=== PATIENT | male | born 1965 | race Caucasian/White ===

== ENCOUNTER 2017-12-15 13:33 | Outpatient (CLI) | payer BC ==
[2017-12-15 14:51] LABS: Hemoglobin 14.2 g/dL (14.0-18.0); Mean Corpuscular HGB CONC 34.8 g/dL (32.0-36.0); Mean Corpuscular Hemoglobin 32.2 pg (27.0-31.0); Mean Corpuscular Volume 92.7 fL (78.0-98.0); Platelet Count 136 thou/uL (130-400); RBC Distribution Width 11.3 % (11.5-14.5); White Blood Cell (WBC) Count 5.8 thou/uL (4.8-10.8)
[2017-12-15 15:10] LABS: Anion Gap 12 mmol/L (10-20); BUN (Urea Nitrogen) 11 mg/dL (8.4-25.7); Calc. Creatinine Clearance 0 mL/min (70-130); Calcium 9.5 mg/dL (7.8-10.44); Carbon Dioxide 26 mmol/L (22-29); Chloride 105 mmol/L (98-107); Estimated GFR-MDRD Greater than 90; Glucose 105 mg/dL (70-105); Sodium 139 mmol/L (136-145)
--- NOTE | 2017-12-15 15:12 | EKG ---
Test Reason : Blood Pressure : / mmHG Vent. Rate : 076 BPM Atrial Rate : 076 BPM P-R Int : 164 ms QRS Dur : 094 ms QT Int : 400 ms P-R-T Axes : 049 074 -01 degrees QTc Int : 450 ms Normal sinus rhythm Possible Anterior infarct , age undetermined T wave abnormality, consider inferior ischemia Abnormal ECG Confirmed by YASMINE CUEVA ([id number]) on 12/15/2017 3:11:58 PM Referred By: INO Confirmed By:YASMINE CUEVA
== END 2017-12-15 13:34 | disposition home or self-care (01) ==
LOC: LABBT 13:33
PROVIDERS: ATTEND Neurological Surgery
DX: Z01.818 Encounter for other preprocedural examination (principal); M54.16 Radiculopathy, lumbar region
CPT/HCPCS: 80048; 85027; 93005; 93010

== ENCOUNTER 2018-05-20 07:36 | Outpatient (CLI) | payer BC ==
--- NOTE | 2018-05-20 07:58 | RAD ---
FXR Lumbar Spine 2 Or 3 View History: [Lumbar radiculopathy] Comparison: None. Findings: No acute fracture or malalignment. No significant change listhesis. No translation with fle xion or extension. Moderate degenerative disc space narrowing from L3-S1. Moderate vascular calcifications. Impression: Mild to moderate degenerative changes. No translation with flexion or extension. No signi ficant listhesis.
--- NOTE | 2018-05-20 08:43 | MRI ---
MRI LUMBAR SPINE WITHOUT CONTRAST: Date: 05/20/18 Multiplanar, multisequential imaging lumbar spine obtained. INDICATION: Lumbar radiculopathy. Right leg pain and numbness. No comparison. FINDINGS: Lumbar vertebra maintain normal height and alignment. Vertebral body signal is normal. There are dege nerative disc changes at L5-S1. The other discs are maintained and exhibit normal signal. At L1-2, there is no significant disc bulge. Mild facet hypertrophy and arthrosis. No central canal o r foraminal stenosis. At L2-3, there is minimal disc bulge. Mild facet arthrosis with no significant central canal or estuardo inal stenosis. At L3-4, there is mild diffuse disc bulge. Facet and ligamentous hypertrophy is more prominent. There is posterior epidural fat. These changes result in mild central canal stenosis. Mild foraminal narro wing due to facet hypertrophy. At L4-5, there is mild diffuse disc bulge. There is evidence of a small focal central protrusion and thinning of the anterior thecal sac. The epidural fat is more prominent posteriorly at this level. Mo derate facet hypertrophy. These changes result in mild to moderate central canal stenosis. Bilateral foraminal narrowing due to the disc bulge and facet hypertrophy. At L5-S1, there is diffuse disc bulge with small central protrusion indenting the anterior thecal sac . Facet hypertrophy. The thecal sac is congenitally smaller; however, the findings result in moderate central canal stenosis. Bilateral foraminal stenosis at this level, more pronounced on the right. Th ere is a disc osteophyte complex that projects to the right and there is prominent facet hypertrophy. IMPRESSION: Abnormalities at L3-4, L4-5, and L5-S1 as described above. POS: [facility]
== END 2018-05-20 07:37 | disposition home or self-care (01) ==
LOC: TBSIIMAG 07:36
PROVIDERS: ATTEND Neurological Surgery
DX: M47.26 Other spondylosis with radiculopathy, lumbar region (principal); M51.17 Intervertebral disc disorders with radiculopathy, lumbosacral region; M48.07 Spinal stenosis, lumbosacral region; M25.78 Osteophyte, vertebrae; M47.27 Other spondylosis with radiculopathy, lumbosacral region
CPT/HCPCS: 72100; 72148

== ENCOUNTER 2018-06-18 14:21 | Outpatient (CLI) | payer BC ==
[2018-06-18 15:08] LABS: Hemoglobin 13.5 g/dL (14.0-18.0); Mean Corpuscular HGB CONC 35.2 g/dL (32.0-36.0); Mean Corpuscular Hemoglobin 32.1 pg (27.0-31.0); Mean Corpuscular Volume 91.2 fL (78.0-98.0); Mean Platelet Volume 7.3 fL (7.4-10.4); Platelet Count 138 thou/uL (130-400); RBC Distribution Width 11.6 % (11.5-14.5); Red Blood Cell (RBC) Count 4.19 mill/uL (4.70-6.10); White Blood Cell (WBC) Count 4.7 thou/uL (4.8-10.8)
[2018-06-18 15:34] LABS: Anion Gap 15 mmol/L (10-20); BUN (Urea Nitrogen) 8 mg/dL (8.4-25.7); Calc. Creatinine Clearance 0 mL/min (70-130); Calcium 9.6 mg/dL (7.8-10.44); Carbon Dioxide 22 mmol/L (22-29); Chloride 105 mmol/L (98-107); Estimated GFR-MDRD Greater than 90; Glucose 94 mg/dL (70-105); Sodium 138 mmol/L (136-145)
== END 2018-06-18 14:22 | disposition home or self-care (01) ==
LOC: LABBT 14:21
PROVIDERS: ATTEND Neurological Surgery
DX: Z01.818 Encounter for other preprocedural examination (principal); M54.16 Radiculopathy, lumbar region
CPT/HCPCS: 80048; 85027; 93005; 93010

== ENCOUNTER 2018-06-22 06:41 | Day surgery (SDC) | payer BC ==
[2018-06-22] MEDS ORDERED: Sodium Chloride 0.9% 10 ML ONE (08:49)
[2018-06-22] MEDS ORDERED: Midazolam HCl 2 mg/2 ml Vial ONE (08:57)
[2018-06-22] MEDS ORDERED: Fentanyl 100 MCG/2 ML VIAL ONE ×3 (09:15→11:01)
[2018-06-22] MEDS ORDERED: Ketorolac Tromethamine 30 MG/ML VIAL ONE (11:01)
[2018-06-22] MEDS ORDERED: Promethazine HCl 25 MG/ML VIAL IM/IV PRN (11:09)
[2018-06-22] MEDS ORDERED: Ondansetron HCl/PF 4 MG/2 ML Vial IVP PRN (11:09)
[2018-06-22] MEDS ORDERED: Morphine 4 MG/ML VIAL SLOW IVP PRN (11:12)
[2018-06-22] MEDS ORDERED: diphenhydrAMINE 50 MG/ML VIAL IVP PRN (11:12)
[2018-06-22] MEDS ORDERED: HYDROcodone/Acetaminophen 10/325 mg Tablet PO PRN ×2 (11:12)
[2018-06-22] MEDS ORDERED: Mag-Al 1200 mg/1200 mg/30 ML UDCUP PO PRN (11:12)
[2018-06-22] MEDS ORDERED: diphenhydrAMINE 25 MG CAP PO PRN (11:12)
[2018-06-22] MEDS ORDERED: Promethazine HCl 25 MG/ML VIAL IM PRN (11:12)
[2018-06-22] MEDS ORDERED: Milk Of Magnesia 30 ML UDCUP PO PRN (11:12)
[2018-06-22] MEDS ORDERED: Promethazine HCl 12.5 MG SUPP PR PRN (11:12)
[2018-06-22] MEDS ORDERED: traMADol HCl 50 MG TAB PO PRN ×2 (11:12)
[2018-06-22] MEDS ORDERED: Promethazine 25 MG TAB PO PRN (11:12)
[2018-06-22] MEDS ORDERED: tiZANidine HCl 4 MG TAB PO PRN (11:12)
[2018-06-22] MEDS ORDERED: Sodium Chloride 0.9% 1,000 ML IV SCH (11:12)
[2018-06-22] MEDS ORDERED: Ondansetron PF 4 MG/2 ML Vial IVP PRN (11:14)
[2018-06-22] MEDS ORDERED: Morphine 2 MG/ML SYRINGE SLOW IVP PRN (11:30)
--- NOTE | 2018-06-22 11:47 | OP ---
DATE OF PROCEDURE: 06/22/2018 WINDOW DISPLAY DESIGNER: Loren Castro PA-C PROCEDURE PERFORMED: Right L5-S1 laminectomy, facetectomy, foraminotomy and diskectomy; interbody arthrodesis; intervertebral biomechanical device; local morselized autograft; demineralized bone matrix; posterolateral arthrodesis, pedicle screw instrumentation, right L5-S1. DESCRIPTION OF PROCEDURE: The patient was brought to the operating room and intubated. He was rolled in the prone position on gel-filled chest rolls. An incision was made exposing right L5-S1 and the level was confirmed by x-ray. We performed complete right L5 facetectomy and superior S1 facetectomy and completely decompressed the right L5 neuroforamen. The disk itself was incised, debrided, and completely removed. The bony endplates were decorticated for the purpose of arthrodesis and appropriate-sized intervertebral biomechanical PEEK device was brought in the field. It was filled with demineralized bone matrix, local morselized autograft, and tapped in place securely at L5-S1. Next, pedicle screws were placed at right L5 and right S1 using lateral fluoroscopic guidance. The vianca was secured between the screws, connected by nuts, which were final tightened. The wound was then extensively irrigated. Maximum hemostasis was secured. Combination of demineralized bone matrix local morselized autograft was laid over the left lamina and posterolateral surfaces for the purpose of arthrodesis. Vancomycin powder was applied, and the wound was closed in anatomic layers. Job ID: [id number]
[2018-06-22] MEDS ORDERED: Ketorolac Tromethamine 30 MG/ML VIAL IVP SCH (12:00)
[2018-06-22] MEDS ORDERED: Lidocaine 1% PF 5 ML VIAL ONE (13:15)
[2018-06-22] MEDS ORDERED: Ondansetron PF 4 MG/2 ML Vial ONE (13:15)
[2018-06-22] MEDS ORDERED: Rocuronium Bromide 10 MG/ML (10ML VIAL) ONE (13:15)
[2018-06-22] MEDS ORDERED: PROVENTIL INHALER 6.7 G (200 INHALATIONS) ONE (13:15)
[2018-06-22] MEDS ORDERED: Glycopyrrolate 0.2 MG/ML 5 ML SYRINGE ONE (13:15)
[2018-06-22] MEDS ORDERED: PROPOFOL 200 MG/20 ML VIAL ONE (13:15)
[2018-06-22] MEDS ORDERED: HYDROcodone/Acetaminophen 5/325 mg Tablet ONE (13:46)
== END 2018-06-22 15:48 | disposition home or self-care (01) ==
LOC: SDC 06:41
PROVIDERS: ATTEND Neurological Surgery
PROC: 0ST40ZZ Resection of Lumbosacral Disc, Open Approach (ICD-10-PCS; principal; 2018-06-22)
PROC: 0SG30AJ Fusion of Lumbosacral Joint with Interbody Fusion Device, Posterior Approach, Anterior Column, Open Approach (ICD-10-PCS; principal; 2018-06-22)
DX: M51.16 Intervertebral disc disorders with radiculopathy, lumbar region (principal); I10 Essential (primary) hypertension; E78.5 Hyperlipidemia, unspecified; K21.9 Gastro-esophageal reflux disease without esophagitis; Z79.1 Long term (current) use of non-steroidal anti-inflammatories (NSAID); Z79.84 Long term (current) use of oral hypoglycemic drugs; Z79.899 Other long term (current) drug therapy
CPT/HCPCS: 76000; C1713; C1768; J0690; J1885; J2001; J2250; J2405; J2704; J3010; J3370; J3490

== ENCOUNTER 2018-07-07 08:16 | Outpatient (CLI) | payer BC ==
--- NOTE | 2018-07-07 10:50 | RAD ---
LUMBAR SPINE 2 VIEWS: Date: 07/07/18 HISTORY: Lumbar radiculopathy. COMPARISON: 05/20/18. FINDINGS: Postoperative changes are now noted when compared to the prior study. There are pedicle screws on the right at L5-S1 with L5-S1 disc implant noted, which appears adequately positioned. Posterior alignme nt is maintained normally. There are mild degenerative changes with osteophytes in the lumbar spine a nd there is facet hypertrophy. IMPRESSION: Postoperative and degenerative changes of the lumbar spine. POS: OFF
== END 2018-07-07 08:17 | disposition home or self-care (01) ==
LOC: TBSIIMAG 08:16
PROVIDERS: ATTEND Neurological Surgery
DX: M47.26 Other spondylosis with radiculopathy, lumbar region (principal); Z98.890 Other specified postprocedural states
CPT/HCPCS: 72100

== ENCOUNTER 2018-07-20 07:48 | Outpatient (CLI) | payer BC ==
--- NOTE | 2018-07-20 08:21 | CT ---
CT lumbar spine noncontrast: 07/20/2018 HISTORY: 53-year-old male with lumbar radiculopathy. Right hip pain. Low back pain. FINDINGS: There are 5 lumbar-type vertebrae. Vertebral body heights are maintained. Alignment is normal. No hig h-grade disc space narrowing at any level. Developmentally small caliber spinal canal exacerbated by lumbar spondylosis. No scoliosis. T12-L1: No high-grade central or neural foraminal stenosis. L1-2: No high-grade central or high-grade neural foraminal stenosis. L2-3: Mild bilateral neural foraminal stenosis. Mild central stenosis. Mild to moderate thecal sac st enosis. L3-4: Diffuse disc bulge. Mild central spinal canal stenosis. Moderate thecal sac stenosis. Moderate bilateral neural foraminal stenosis, left greater than right. Left vacuum facet joint phenomenon. Mild ligamentum flavum thickening. L4-5: Diffuse disc bulge plus superimposed shallow small central and bilateral paracentral disc herni ation that indents the thecal sac. Mild central spinal canal stenosis. Moderate thecal sac stenosis. Moderate bilateral neural foraminal stenosis. Left-sided onlay bone graft chips posterior t o the left posterior elements. These have not fused. L5-S1: Surgical resection of right L5 inferior articular facet. Right L5 pedicle screw at the lateral edge of the vertebral body. Right S1 pedicle screw surrounded by lucency of bone that in turn has a sclerotic rim. Metallic markers for interbody graft in the right side of the disc space. No osseous bridges between the endplates. Diffuse disc bulge. The central and left paracentral soft tissue density material indents the thecal sac. Cannot distinguish herniated disc material from postsurgical scar tissue on CT. Left-sided onlay bone graft chips posterior to the left posterior elements. These have not fused. Severe right neural foraminal stenosis with complete effacement of neural estuardo inal fat. Cannot distinguish postsurgical scar tissue from disc material. Moderate to severe left neural foraminal stenosis with effacement of neural foraminal fat. Severe thecal sac stenosis caused by the soft tissue density material described above. Mild central spinal canal stenosis. IMPRESSION: 1. Status post posterior lumbar interbody fusion at L5-S1, with placement of unilateral right-sided p edicle screws, and right L5 inferior facetectomy. 2. Loosening of right S1 pedicle screw. 3. Soft tissue density material effacing the central and left paracentral anterior aspect of the thec al sac at L5-S1: Cannot distinguish herniated extruded disc material from postsurgical scar tissue on CT. 4. Severe bilateral neural foraminal stenosis at L5-S1 with effacement of neural foraminal fat, right worse than left. Cannot distinguish disc material from postsurgical scar tissue on CT. 5. Placement of onlay bone graft chips posterior to the left posterior elements from L4-5 through L5- S1.
== END 2018-07-20 07:49 | disposition home or self-care (01) ==
LOC: TBSIIMAG 07:48
PROVIDERS: ATTEND Neurological Surgery
DX: M51.16 Intervertebral disc disorders with radiculopathy, lumbar region (principal); T84.038A Mechanical loosening of other internal prosthetic joint, initial encounter; M48.07 Spinal stenosis, lumbosacral region; Z98.1 Arthrodesis status
CPT/HCPCS: 72131

== ENCOUNTER 2018-08-12 13:11 | Outpatient (CLI) | payer BC ==
--- NOTE | 2018-08-12 13:38 | RAD ---
EXAM: 2 views of the lumbosacral spine HISTORY: Low back pain COMPARISON: 07/07/2018 FINDINGS: 2 views of the lumbosacral spine shows the patient is status post posterior fusion of L5 an d S1 with right-sided pedicle screws. A disc spacer is seen in the intervening disc space. No perihardware lucency is seen. There is normal height and alignment of the vertebral bodies without fr acture or subluxation. Moderate osteophytes are seen in the upper and mid lumbar spine. No changes occurred compared to the prior exam. The sacroiliac joints are unremarkable. IMPRESSION: Stable with postoperative changes of the lumbar spine
== END 2018-08-12 13:12 | disposition home or self-care (01) ==
LOC: TBSIIMAG 13:11
PROVIDERS: ATTEND Neurological Surgery
DX: M51.16 Intervertebral disc disorders with radiculopathy, lumbar region (principal); Z98.1 Arthrodesis status
CPT/HCPCS: 72100